=== PATIENT | female | born 1945 | race Caucasian/White ===

== ENCOUNTER → 2018-06-14 | Day surgery (SDC) | payer MEDICARE, OTHER ==
[~2018-06-14] MED LIST: Lactated Ringers 1,000 ML IV SCH; Propofol 200 MG/20 ML SDV IV ONE
--- NOTE | 2018-06-14 12:52 | PCM.HPR ---
H & P Addendum review - H & P Addendum Review Date of Original H & P: 06/12/18 Date Reviewed: 06/14/18 Time Reviewed: 11:45 Patient was Examined: No Changes
--- NOTE | 2018-06-14 12:59 | PCM.OPNOTE ---
- General Post-Op/Procedure Note Date of Surgery/Procedure: 06/14/18 Operative Procedure(s): Colonoscopy with multiple bx's Findings: sig colitis/proctitis Pre Op Diagnosis: Hematochezia Post-Op Diagnosis: Same Anesthesia Technique: MAC Primary Surgeon: René Garcia Pathology: Colon Bx's EBL in mLs: 1 Complications: None Condition: Good
--- NOTE | 2018-06-15 08:01 | OR ---
DATE OF OPERATION: 06/14/2018 SURGEON: René Garcia MD PREOPERATIVE DIAGNOSES: 1. Hematochezia. 2. Family history of colon cancer. POSTOPERATIVE DIAGNOSIS: Colitis of the sigmoid colon and rectum. PROCEDURE: Colonoscopy with multiple biopsies. ANESTHESIA: IV sedation. PROCEDURE IN DETAIL: Patient was brought to the procedure room, where she was placed on her left side and IV sedation administered. Digital rectal exam was performed, which was normal. The colonoscope was inserted and advanced to the level of the cecum with some difficulty getting through a tortuous colon with looping. By providing pressure and changing her to the supine position, I was able to reach the cecum, which was confirmed by identifying the ileocecal valve. Appendiceal lumen was not visible. Appendix has been removed. Prep was good with some areas of stool remaining that were mostly suctioned and irrigated. Photographs were taken in all segments of the colon. I also biopsied all segments of the colon upon withdrawing the scope, including the cecum, ascending colon, transverse colon, descending colon, sigmoid colon, and rectum. The colitis is moderately severe in the rectum and mild in the distal sigmoid colon. This starts at about 20 cm from the anal verge and extends to the anal canal. The worst area is just above the dentate line, where there was an ulcerated area of approximately 1 cm in diameter with heaped up mucosal edges. Photographs of this were also taken. Minimal oozing occurred from the procedure. The patient tolerated the procedure well and returned to recovery in stable condition. PLAN: I will begin her on prednisone and follow up with her next week for followup and review of pathology report. /[id number] ARJUN/MITZI
== END | disposition home or self-care (01) ==
LOC: FB.SDS 09:34
PROVIDERS: ATTEND Surgery
DX: K92.1 Melena (principal); K52.9 Noninfective gastroenteritis and colitis, unspecified; K62.89 Other specified diseases of anus and rectum; E11.9 Type 2 diabetes mellitus without complications; E78.5 Hyperlipidemia, unspecified; I10 Essential (primary) hypertension; Z80.0 Family history of malignant neoplasm of digestive organs; Z79.82 Long term (current) use of aspirin; Z79.899 Other long term (current) drug therapy; Z88.5 Allergy status to narcotic agent; Z91.048 Other nonmedicinal substance allergy status; Z87.891 Personal history of nicotine dependence
CPT/HCPCS: 00812-QZ; 88305; J2704; J7120

== ENCOUNTER 2018-11-15 09:28 | Inpatient (IN) | payer MEDICARE, OTHER ==
[2018-11-15] MEDS ORDERED: Acetaminophen 325 MG Tab PO PRN (13:15)
--- NOTE | 2018-11-15 13:42 | PCM.HP ---
H&P History of Present Illness - General Date of Service: 11/15/18 Admit Problem/Dx: Admission Diagnosis/Problem Admission Diagnosis/Problem Debility Source of Information: Old Records, Provider, Other (Patient was supposed to arrive before I left for the day but because of the weather they were unable to arrive. Dr. Lundy will see the patient and complete the history and px. All information here is from chart review.) History Limitations: Reports: No Limitations - History of Present Illness Initial Comments - Free Text/Narative: Patient is a 73-year-old female with a history of Crohn's disease which was rapidly progressive and ultimately resulted in her being transferred to [place] for intervention. Patient was diagnosed with Crohn's in 2015 but was not treated due to mild symptoms. She presented in May 2018 with severe proctitis and was briefly on immunosuppressive therapy. 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 She was started on Remicade and received 2 doses and follow up with [place] was arranged. In September 2018 she was found have microperforation of the colon and underwent ileostomy on 09/05/18. She then had slow and progressive weight loss and functional decline throughout September and October. She continued to have crampy abdominal pain with bloody output from her fistula 6-10 episodes per day. On October 09, 2018 she was seen for GI follow-up and then admitted at [facility] from 10/09-10/25 due to diffuse proctocolitis, bloody ostomy output , and continued stool passage through rectovaginal fistula. She was transferred to [facility] in [place] on 10/25/17 for further evaluation and management. An MRI on 10/26 showed a 3.4 cm left pelvic fluid collection involving the iliopsoas consistent with a multiloculated pelvic abscess. This was causing left distal ureteral obstruction and hydroureteronephrosis. She also had thickening of the sigmoid colon with new pancolitis and findings consistent with pneumatosis versus wall thickening in the sigmoid colon. Rectovaginal fistula was also identified. She was sent for CT-guided drain placement for the abscess but given the loculated nature there was no part amenable to a pigtail drain. On 11/02/2018 she underwent a total proctocolectomy and exploration of the abdomen with lysis of adhesions, flap omentum, and a cystourethroscopy with placement of ureteral stents bilaterally. The left fallopian tube was also removed. She did remarkably well after surgery and gradually improved. TPN was able to be discontinued. Antibiotics were completed prior to discharge. She will not be taking any steroids or Crohn's medications for 6 weeks while her wounds heal. She had some concerns regarding dysphagia with a negative swallowing evaluation. Hemoglobin was stable in the 7-7.9 range postoperatively. The patient was on sliding scale insulin during her hospital stay and used very little insulin. At the time of discharge she was medically stable and ready for outpatient physical therapy and occupational therapy to address her malnutrition, debility, and weakness. She was discharged from [place] on 11/15/18 for swingbed status here at [facility]. Due to poor weather in the [facility], their arrival was delayed until after hours so Dr. Lundy will see the patient and do the admission history and physical exam on 11/16/18. Past Medical Hx: #1 Crohn's disease as noted above #2 diabetes mellitus type 2 - minimal insulin needs while hospitalized. 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 She has a brother with diabetes who was on dialysis. He also had rectal cancer. Dad had heart disease. Mom had diabetes. She has a sister with colon cancer. Another sister in her 70s of stomach cancer. Third sister in her 90s of old age. Social History: She is and lives with her . Quit smoking in 1989. No alcohol use. - Related Data Allergies/Adverse Reactions: Allergies Allergy/AdvReac Type Severity Reaction Status Date / Time hydrocodone Allergy Edema Verified 06/13/18 15:04 mold Allergy Cannot Verified 06/13/18 15:04 Remember PHENYLENE Allergy Other Uncoded 06/14/18 11:40 Home Medications: Home Meds traMADol [Ultram] 50 mg PO Q6H PRN 06/13/18 [History] Acetaminophen 650 mg PO Q6H PRN 11/15/18 [History] Benzocaine/Menthol [Cepacol Sore Throat Lozenge] 1 dandre PO Q1H PRN 11/15/18 [ History] Enoxaparin Sodium [Lovenox] 40 mg SUBCUT DAILY 11/15/18 [History] Famotidine [Pepcid] 20 mg PO DAILY@0600 11/15/18 [History] Ferrous Sulfate 325 mg PO DAILY 11/15/18 [History] HYDROmorphone [Dilaudid] 2 mg PO Q4H PRN 11/15/18 [History] HYDROmorphone [Dilaudid] 4 mg PO Q4H PRN 11/15/18 [History] Insulin Glarg,Human.Rec.Analog [Lantus Solostar] 30 units SUBCUT DAILY 11/15/18 [History] Lidocaine 5% [Lidoderm 5%] 700 mg TOP DAILY 11/15/18 [History] Magnesium Chloride [Mag-64] 128 mg PO BIDMEALS 11/15/18 [History] Melatonin/Pyridoxine HCl (B6) [Melatonin 3 mg Tablet] 6 mg PO BEDTIME 11/15/18 [ History] Metoprolol Tartrate 25 mg PO BID 11/15/18 [History] Mirtazapine 15 mg PO BEDTIME 11/15/18 [History] Multivit,Calc,Mins/Iron/Folic [Therapeutic-M Tablet] 1 tab PO DAILY 11/15/18 [ History] Multivit-Minerals/Ferrous Gluc [Multi-Naveen Liquid] 15 ml PO SUTUTHSA 11/15/18 [ History] Saccharomyces Boulardii [Florastor] 250 mg PO BID 11/15/18 [History] atorvaSTATin [Lipitor] 5 mg PO BEDTIME 11/15/18 [History] Past Medical History HEENT History: Cardiovascular History: Reports: High Cholesterol, Hypertension Gastrointestinal History: Reports: Diverticulosis Other Gastrointestinal History: COLONOSCOPIES 2008,2016, FLEX SCOPE 2013 Musculoskeletal History: Reports: Arthritis Endocrine/Metabolic History: Reports: Diabetes, Type II - Past Surgical History HEENT Surgical History: Reports: Adenoidectomy, Tonsillectomy GI Surgical History: Reports: Colonoscopy, EGD Female Surgical History: Reports: Hysterectomy Social & Family History - Caffeine Use Caffeine Use: Reports: Coffee H&P Review of Systems - Review of Systems: Review Of Systems: Unable To Obtain (patient didn't arrive as scheduled.) Exam - Exam Exam: Not Obtained - Problem List (1) Debility SNOMED Code(s): 97555163 ICD Code: R53.81 - OTHER MALAISE Status: Acute Problem Details: Secondary to extensive surgery, prolonged hospitalization. PT/OT to evaluate and treat. (2) Crohns disease SNOMED Code(s): 81584732 ICD Code: K50.90 - CROHN'S DISEASE, UNSPECIFIED, WITHOUT COMPLICATIONS Status: Acute Problem Details: Status post surgery with ileostomy and repair of rectovaginal fistula. See above. Patient should be treated with Lovenox for 30 days postoperatively. Surgery was on 11/02/18. She should be off steroids and immunotherapy for 6 weeks to allow healing. She has sutures in place in the perineum which can be removed anytime after 3 weeks of healing by primary care. (3) DM2 (diabetes mellitus, type 2) SNOMED Code(s): 62155771 ICD Code: E11.9 - TYPE 2 DIABETES MELLITUS WITHOUT COMPLICATIONS Status: Acute Problem Details: Minimal insulin requirements while hospitalized at [place]. Will not start insulin at this time. Patient may be able to be started on Januvia. Dr. Lundy will assess tomorrow. (4) HTN (hypertension) SNOMED Code(s): 44833638 ICD Code: I10 - ESSENTIAL (PRIMARY) HYPERTENSION Status: Acute Problem Details: Will assess on patient admission. (5) Hyperlipidemia SNOMED Code(s): 16018849 ICD Code: E78.5 - HYPERLIPIDEMIA, UNSPECIFIED Status: Acute Problem Details: We'll assess on admission. (6) DVT prophylaxis SNOMED Code(s): 517616097, 803147610 ICD Code: [id number] - Status: Acute Problem Details: Lovenox as above. SCDs, BRIAN, increased mobility. Problem List Initiated/Reviewed/Updated: Yes Orders Last 24hrs: Active Orders 24 hr Category Date Time Status Patient Status [ADT] Routine ADT 11/15/18 13:26 Ordered Dietary Supplements [RC] QIDACANDBED Care 11/15/18 13:26 Ordered Height and Weight [RC] DAILY Care 11/15/18 13:26 Ordered Oxygen Therapy [RC] PRN Care 11/15/18 13:26 Ordered Up With Assistance [RC] ASDIRECTED Care 11/15/18 13:26 Ordered VTE/DVT Education [RC] Per Unit Routine Care 11/15/18 13:26 Ordered Vital Signs [RC] PER UNIT ROUTINE Care 11/15/18 13:26 Ordered OT Evaluation and Treatment [CONS] Routine Cons 11/15/18 13:26 Ordered PT Evaluation and Treatment [CONS] Routine Cons 11/15/18 13:26 Ordered Regular Diet [DIET] Diet 11/15/18 Breakfast Ordered Acetaminophen [Tylenol] Med 11/15/18 13:15 Ordered 650 mg PO Q6H PRN Benzocaine/Menthol [Cepacol Sore Throat Lozenge] Med 11/15/18 13:15 Ordered 1 dandre PO Q1H PRN Enoxaparin [Lovenox] Med 11/16/18 09:00 Ordered 40 mg SUBCUT DAILY Famotidine [Pepcid] Med 11/16/18 06:00 Ordered 20 mg PO DAILY@0600 Ferrous Sulfate Med 11/16/18 09:00 Ordered 325 mg PO DAILY HYDROmorphone [Dilaudid] Med 11/15/18 13:15 Ordered 4 mg PO Q4H PRN Magnesium Chloride [Mag-64] Med 11/15/18 18:00 Ordered 128 mg PO BIDMEALS Melatonin/Pyridoxine HCl (B6) [Melatonin 3 mg Tablet] Med 11/15/18 21:00 Ordered 6 mg PO BEDTIME Metoprolol Tartrate [Lopressor] Med 11/15/18 21:00 Ordered 25 mg PO BID Mirtazapine [Remeron] Med 11/15/18 21:00 Ordered 15 mg PO BEDTIME Multivit,Calc,Mins/Iron/Folic [Therapeutic-M Tablet] Med 11/16/18 09:00 Ordered 1 tab PO DAILY Saccharomyces Boulardii [Florastor] Med 11/15/18 21:00 Ordered 250 mg PO BID atorvaSTATin [Lipitor] Med 11/15/18 21:00 Ordered 5 mg PO BEDTIME traMADol [Ultram] Med 11/15/18 13:15 Ordered 50 mg PO Q6H PRN Antiembolic Hose [OM.PC] Per Unit Routine Oth 11/15/18 13:27 Ordered Sequential Compression Device [OM.PC] Per Unit Routine Oth 11/15/18 13:27 Ordered Medication Orders Acetaminophen (Tylenol) 650 mg PO Q6H PRN PRN Reason: Pain Atorvastatin Calcium (Lipitor) 5 mg PO BEDTIME [facility] Enoxaparin Sodium (Lovenox) 40 mg SUBCUT DAILY [facility] Famotidine (Pepcid) 20 mg PO DAILY@0600 [facility] Ferrous Sulfate (Ferrous Sulfate) 325 mg PO DAILY [facility] Hydromorphone HCl (Dilaudid) 4 mg PO Q4H PRN PRN Reason: PAIN 7-07/11 Magnesium Chloride (Mag-64) 128 mg PO BIDMEALS [facility] Metoprolol Tartrate (Lopressor) 25 mg PO BID [facility] Mirtazapine (Remeron) 15 mg PO BEDTIME [facility] Non-Formulary Medication (Benzocaine/Menthol [Cepacol Sore Throat Lozenge]) 1 dandre PO Q1H PRN PRN Reason: Sore Throat Non-Formulary Medication (Melatonin/Pyridoxine Hcl (B6) [Melatonin 3 Mg Tablet] ) 6 mg PO BEDTIME [facility] Non-Formulary Medication (Multivit,Calc,Mins/Iron/Folic [Therapeutic-M Tablet]) 1 tab PO DAILY [facility] Saccharomyces Boulardii (Florastor) 250 mg PO BID [facility] Tramadol HCl (Ultram) 50 mg PO Q6H PRN PRN Reason: Pain
[2018-11-15] MEDS ORDERED: Benzocaine/Cetylpyridinium/Menthol Lozenge MUCMEM PRN (14:15)
[2018-11-15] MEDS: Magnesium Chloride 64 MG Tab.ER PO SCH (19:18)
[2018-11-15] MEDS: traMADol 50 MG Tab PO PRN (20:11)
[2018-11-15] MEDS: HYDROmorphone 2 MG Tab PO PRN (20:15)
[2018-11-15] MEDS: Metoprolol Tartrate 25 MG Tab PO SCH (21:30)
[2018-11-15] MEDS: Saccharomyces Boulardii (Probiotic) 250 MG Cap PO SCH (21:30)
[2018-11-15] MEDS: atorvaSTATin 10 MG Tab PO SCH (21:30)
[2018-11-15] MEDS: Melatonin 3 MG Tab PO SCH (21:31)
[2018-11-15] MEDS: Mirtazapine 15 MG Tab PO SCH (21:32)
[2018-11-16] MEDS: Famotidine 20 MG Tab PO SCH (05:19)
[2018-11-16] MEDS: Magnesium Chloride 64 MG Tab.ER PO SCH ×2 (08:51→19:00)
[2018-11-16] MEDS: Ferrous Sulfate 325 MG Tab PO SCH (08:51)
[2018-11-16] MEDS: Saccharomyces Boulardii (Probiotic) 250 MG Cap PO SCH ×2 (08:51→20:38)
[2018-11-16] MEDS: Lidocaine 5% 700 MG Patch TRDERM SCH (08:52)
[2018-11-16] MEDS: Multivitamins,Therapeutic Tab PO SCH (08:53)
[2018-11-16] MEDS: Metoprolol Tartrate 25 MG Tab PO SCH ×2 (08:53→20:38)
[2018-11-16] MEDS: Enoxaparin 40 MG/0.4 ML Syringe SUBCUT SCH (08:54)
[2018-11-16] MEDS: traMADol 50 MG Tab PO PRN (09:24)
--- NOTE | 2018-11-16 10:34 | PCM.HP ---
H&P History of Present Illness - General Date of Service: 11/16/18 Admit Problem/Dx: Admission Diagnosis/Problem Admission Diagnosis/Problem Debility - History of Present Illness Initial Comments - Free Text/Narative: is a 73-year-old female admitted from the [facility] yesterday to swing bed. She has a history of Crohn's disease of the large intestine with a fistula , and needed extensive surgical intervention at the [facility]. Please see Dr. Day 's note(11/15/18) for the full course and summary. I also personally reviewed the discharge summary from the clinic which is a hard copy.This morning she has no major complaints except intermittent abdominal pain in the upper area that comes and goes she also feels weak as no nausea vomiting no blood in the ileostomy bag no fever - Related Data Allergies/Adverse Reactions: Allergies Allergy/AdvReac Type Severity Reaction Status Date / Time hydrocodone Allergy Edema Verified 06/13/18 15:04 mold Allergy Cannot Verified 06/13/18 15:04 Remember PHENYLENE Allergy Other Uncoded 06/14/18 11:40 Home Medications: Home Meds traMADol [Ultram] 50 mg PO Q6H PRN 06/13/18 [History] Acetaminophen 650 mg PO Q6H PRN 11/15/18 [History] Benzocaine/Menthol [Cepacol Sore Throat Lozenge] 1 dandre PO Q1H PRN 11/15/18 [ History] Enoxaparin Sodium [Lovenox] 40 mg SUBCUT DAILY 11/15/18 [History] Famotidine [Pepcid] 20 mg PO DAILY@0600 11/15/18 [History] Ferrous Sulfate 325 mg PO DAILY 11/15/18 [History] HYDROmorphone [Dilaudid] 2 mg PO Q4H PRN 11/15/18 [History] HYDROmorphone [Dilaudid] 4 mg PO Q4H PRN 11/15/18 [History] Insulin Glarg,Human.Rec.Analog [Lantus Solostar] 30 units SUBCUT DAILY 11/15/18 [History] Lidocaine 5% [Lidoderm 5%] 700 mg TOP DAILY 11/15/18 [History] Magnesium Chloride [Mag-64] 128 mg PO BIDMEALS 11/15/18 [History] Melatonin/Pyridoxine HCl (B6) [Melatonin 3 mg Tablet] 6 mg PO BEDTIME 11/15/18 [ History] Metoprolol Tartrate 25 mg PO BID 11/15/18 [History] Mirtazapine 15 mg PO BEDTIME 11/15/18 [History] Multivit,Calc,Mins/Iron/Folic [Therapeutic-M Tablet] 1 tab PO DAILY 11/15/18 [ History] Multivit-Minerals/Ferrous Gluc [Multi-Naveen Liquid] 15 ml PO SUTUTHSA 11/15/18 [ History] Saccharomyces Boulardii [Florastor] 250 mg PO BID 11/15/18 [History] atorvaSTATin [Lipitor] 5 mg PO BEDTIME 11/15/18 [History] Past Medical History HEENT History: Cardiovascular History: Reports: High Cholesterol, Hypertension Gastrointestinal History: Reports: Diverticulosis Other Gastrointestinal History: COLONOSCOPIES 2007,2015, FLEX SCOPE 2012 Musculoskeletal History: Reports: Arthritis Endocrine/Metabolic History: Reports: Diabetes, Type II - Past Surgical History HEENT Surgical History: Reports: Adenoidectomy, Tonsillectomy GI Surgical History: Reports: Colonoscopy, EGD Female Surgical History: Reports: Hysterectomy Social & Family History - Family History Family Medical History: Noncontributory - Tobacco Use Smoking Status *Q: Former Smoker Used Tobacco, but Quit: Yes Month/Year Tobacco Last Used: 180 - Caffeine Use Caffeine Use: Reports: Coffee - Recreational Drug Use Recreational Drug Use: No H&P Review of Systems - Review of Systems: Review Of Systems: ROS reveals no pertinent complaints other than HPI. Exam - Exam Exam: See Below - Vital Signs Vital Signs: Last Vital Signs Temp 98.4 F 11/16/18 02:00 Pulse 96 11/16/18 08:53 Resp 18 11/16/18 02:00 BP 129/75 11/16/18 08:53 Pulse Ox 99 11/16/18 02:00 Weight: 49.186 kg - Exam General: Alert, Oriented, 4 HEENT: PERRLA, Hearing Intact, Mucosa Moist & [place], Nares Patent, Normal Nasal Septum, Posterior Pharynx Clear, Conjunctiva Clear, EOMI, EACs Clear, TMs Clear Neck: Supple, Trachea Midline, 2 Lungs: Clear to Auscultation, Normal Respiratory Effort Cardiovascular: Regular Rate, Regular Rhythm GI/Abdominal Exam: Other (Ileostomy bag noted.Site is clean. Incision is intact, dry) (Female) Exam: Deferred Rectal (Female) Exam: Deferred Back Exam: Normal Inspection, Full Range of Motion, NT Extremities: Normal Inspection, Normal Range of Motion, Non-Tender, No Pedal Edema, Normal Capillary Refill Skin: Warm, Dry, Intact Neurological: Cranial Nerves Intact, Reflexes Equal Bilateral Neuro Extensive - Mental Status: Alert, Oriented x3, Normal Mood/Affect, Normal Cognition Neuro Extensive - Motor, Sensory, Reflexes: CN II-XII Intact, Normal Gait, Normal Reflexes Psychiatric: Alert, Normal Affect, Normal Mood - Patient Data Lab Results Last 24 hrs: Laboratory Results - last 24 hr 11/16/18 11/16/18 Range/Units 06:15 06:15 WBC 8.9 (4.5-12.0) X10-3/uL RBC 2.71 L (3.23-5.20) x10(6)uL Hgb 8.1 L (11.5-15.5) g/dL Hct 24.2 L (30.0-51.3) % MCV 89.2 (80-96) fL MCH 29.9 (27.7-33.6) pg MCHC 33.5 (32.2-35.4) g/dL RDW 17.3 H (11.5-15.5) % Plt Count 798 H (125-369) X10(3)uL MPV 7.4 (7.4-10.4) fL Neut % (Auto) 67.1 (46-82) % Lymph % (Auto) 15.1 (13-37) % [place] % (Auto) 10.0 (4-12) % Eos % (Auto) 6 H (1.0-5.0) % Baso % (Auto) 2 (0-2) % Neut # (Auto) 6.0 (1.6-8.3) # Lymph # (Auto) 1.3 (0.6-5.0) # [place] # (Auto) 0.9 (0.0-1.3) # Eos # (Auto) 0.6 (0.0-0.8) # Baso # (Auto) 0.1 (0.0-0.2) # Sodium 133 L (135-145) mmol/L Potassium 4.2 (3.5-5.3) mmol/L Chloride 100 (100-110) mmol/L Carbon Dioxide 26 (21-32) mmol/L BUN 8 (7-18) mg/dL Creatinine 0.5 L (0.55-1.02) mg/dL Est Cr Clr Drug Dosing 77.81 mL/min Estimated GFR (MDRD) > 60 (>60) BUN/Creatinine Ratio 16.0 (9-20) Glucose 102 (80-116) mg/dL Calcium 8.8 (8.6-10.2) mg/dL Total Bilirubin 0.2 (0.1-1.3) mg/dL AST 18 (5-25) IU/L ALT 31 (12-36) U/L Alkaline Phosphatase 174 H (56-112) IU/L Total Protein 6.7 (6.0-8.0) g/dL Albumin 1.8 L (3.2-4.6) g/dL Globulin 4.9 g/dL Albumin/Globulin Ratio 0.4 Result Diagrams: 11/16/18 06:15 11/16/18 06:15 - Problem List (1) Crohns disease SNOMED Code(s): 16375091 ICD Code: K50.90 - CROHN'S DISEASE, UNSPECIFIED, WITHOUT COMPLICATIONS Status: Acute Current Visit: No Problem Details: Status post surgery with ileostomy and repair of rectovaginal fistula. See above. Patient should be treated with Lovenox for 30 days postoperatively. Surgery was on 11/02/18. She should be off steroids and immunotherapy for 6 weeks to allow healing. She has sutures in place in the perineum which can be removed anytime after 3 weeks of healing by primary care. (2) Malnutrition SNOMED Code(s): 61823593 ICD Code: E46 - UNSPECIFIED PROTEIN-CALORIE MALNUTRITION Status: Acute Current Visit: Yes Qualifiers: Malnutrition type: protein-calorie malnutrition (3) H/O total colectomy SNOMED Code(s): 006030605, 644386219 ICD Code: Z90.49 - ACQUIRED ABSENCE OF OTHER SPECIFIED PARTS OF DIGESTIVE TRACT Status: Acute Current Visit: Yes (4) Ileostomy care SNOMED Code(s): 904081218 ICD Code: Z43.2 - ENCOUNTER FOR ATTENTION TO ILEOSTOMY Status: Acute Current Visit: Yes (5) Ileostomy in place SNOMED Code(s): 469181092 ICD Code: Z93.2 - ILEOSTOMY STATUS Status: Acute Current Visit: Yes (6) Dysphagia SNOMED Code(s): 23716496, 231968447 ICD Code: R13.10 - DYSPHAGIA, UNSPECIFIED Status: Acute Current Visit: Yes Qualifiers: Dysphagia type: unspecified Qualified Code(s): R13.10 - Dysphagia, unspecified (7) Abscess of rectovesical pouch SNOMED Code(s): 259402419 ICD Code: N30.80 - OTHER CYSTITIS WITHOUT HEMATURIA Status: Acute Current Visit: Yes (8) HLD (hyperlipidemia) SNOMED Code(s): 52828449 ICD Code: E78.5 - HYPERLIPIDEMIA, UNSPECIFIED Status: Acute Current Visit : Yes (9) DM2 (diabetes mellitus, type 2) SNOMED Code(s): 41964614 ICD Code: E11.9 - TYPE 2 DIABETES MELLITUS WITHOUT COMPLICATIONS Status: Acute Current Visit: No Problem Details: Minimal insulin requirements while hospitalized at [place].Observe sugars (10) Debility SNOMED Code(s): 26901871 ICD Code: R53.81 - OTHER MALAISE Status: Acute Current Visit: No Problem Details: Secondary to extensive surgery, prolonged hospitalization. PT/ OT to evaluate and treat. (11) HTN (hypertension) SNOMED Code(s): 58392602 ICD Code: I10 - ESSENTIAL (PRIMARY) HYPERTENSION Status: Acute Current Visit: No Problem Details: stable Qualifiers: Hypertension type: essential hypertension Qualified Code(s): I10 - Essential (primary) hypertension (12) Hyperlipidemia SNOMED Code(s): 55031056 ICD Code: E78.5 - HYPERLIPIDEMIA, UNSPECIFIED Status: Acute Current Visit : No Problem Details: Continue current meds Problem List Initiated/Reviewed/Updated: Yes Orders Last 24hrs: Active Orders 24 hr Category Date Time Status Patient Status [ADT] Routine ADT 11/15/18 13:26 Active Communication Order [RC] 08,16,00 Care 11/15/18 15:06 Active Dietary Supplements [RC] QIDACANDBED Care 11/15/18 13:26 Active Height and Weight [RC] 06 Care 11/15/18 13:26 Active Oxygen Therapy [RC] PRN Care 11/15/18 13:26 Active Up With Assistance [RC] ASDIRECTED Care 11/15/18 13:26 Active VTE/DVT Education [RC] DAILY Care 11/15/18 13:26 Active Vital Signs [RC] 08 Care 11/15/18 13:26 Active OT Evaluation and Treatment [CONS] Routine Cons 11/15/18 13:26 Active PT Evaluation and Treatment [CONS] Routine Cons 11/15/18 13:26 Active Acetaminophen [Tylenol] Med 11/15/18 13:15 Active 650 mg PO Q6H PRN Benzocaine/Cetylpyrd/Menthol [Cepacol Sore Throat] Med 11/15/18 14:15 Active 1 lozenge MUCMEM Q1H PRN Enoxaparin [Lovenox] Med 11/16/18 09:00 Active 40 mg SUBCUT DAILY Famotidine [Pepcid] Med 11/16/18 06:00 Active 20 mg PO DAILY@0600 Ferrous Sulfate Med 11/16/18 09:00 Active 325 mg PO DAILY HYDROmorphone [Dilaudid] Med 11/15/18 13:15 Active 4 mg PO Q4H PRN Lidocaine 5% [Lidoderm 5%] Med 11/16/18 09:00 Active 700 mg TRDERM DAILY Magnesium Chloride [Mag-64] Med 11/15/18 18:00 Active 128 mg PO BIDMEALS Melatonin Med 11/15/18 21:00 Active 6 mg PO BEDTIME Metoprolol Tartrate [Lopressor] Med 11/15/18 21:00 Active 25 mg PO BID Mirtazapine [Remeron] Med 11/15/18 21:00 Active 15 mg PO BEDTIME Multivitamins,Therapeutic [Thera] Med 11/16/18 09:00 Active 1 each PO DAILY Remove Patch Med 11/15/18 21:00 Active 1 ea TRDERM BEDTIME Saccharomyces Boulardii [Florastor] Med 11/15/18 21:00 Active 250 mg PO BID atorvaSTATin [Lipitor] Med 11/15/18 21:00 Active 5 mg PO BEDTIME traMADol [Ultram] Med 11/15/18 13:15 Active 50 mg PO Q6H PRN Antiembolic Hose [OM.PC] Per Unit Routine Oth 11/15/18 13:27 Ordered Sequential Compression Device [OM.PC] Per Unit Routine Oth 11/15/18 13:27 Ordered Medication Orders Acetaminophen (Tylenol) 650 mg PO Q6H PRN PRN Reason: Pain Atorvastatin Calcium (Lipitor) 5 mg PO BEDTIME [facility] Last Admin: 11/15/18 21:30 Dose: 5 mg Benzocaine/Menthol (Cepacol Sore Throat) 1 lozenge MUCMEM Q1H PRN PRN Reason: SORE THROAT Enoxaparin Sodium (Lovenox) 40 mg SUBCUT DAILY [facility] Stop: 12/02/18 10:00 Last Admin: 11/16/18 08:54 Dose: 40 mg Famotidine (Pepcid) 20 mg PO DAILY@0600 [facility] Last Admin: 11/16/18 05:19 Dose: 20 mg Ferrous Sulfate (Ferrous Sulfate) 325 mg PO DAILY [facility] Last Admin: 11/16/18 08:51 Dose: 325 mg Hydromorphone HCl (Dilaudid) 4 mg PO Q4H PRN PRN Reason: PAIN 7-1010 Last Admin: 11/15/18 20:15 Dose: 4 mg Lidocaine (Lidoderm 5%) 700 mg TRDERM DAILY [facility] Last Admin: 11/16/18 08:52 Dose: 700 mg Magnesium Chloride (Mag-64) 128 mg PO BIDMEALS [facility] Last Admin: 11/16/18 08:51 Dose: 128 mg Admin: 11/15/18 19:18 Dose: 128 mg Melatonin (Melatonin) 6 mg PO BEDTIME [facility] Last Admin: 11/15/18 21:31 Dose: 6 mg Metoprolol Tartrate (Lopressor) 25 mg PO BID [facility] Last Admin: 11/16/18 08:53 Dose: 25 mg Admin: 11/15/18 21:30 Dose: 25 mg Mirtazapine (Remeron) 15 mg PO BEDTIME [facility] Last Admin: 11/15/18 21:32 Dose: 15 mg Miscellaneous Information (Remove Patch) 1 ea TRDERM BEDTIME [facility] Last Admin: 11/15/18 21:00 Dose: 1 ea Multivitamins (Thera) 1 each PO DAILY [facility] Last Admin: 11/16/18 08:53 Dose: 1 each Saccharomyces Boulardii (Florastor) 250 mg PO BID [facility] Last Admin: 11/16/18 08:51 Dose: 250 mg Admin: 11/15/18 21:30 Dose: 250 mg Tramadol HCl (Ultram) 50 mg PO Q6H PRN PRN Reason: Pain Last Admin: 11/16/18 09:24 Dose: 50 mg Admin: 11/15/18 20:11 Dose: 50 mg Assessment/Plan Comment:: Admit to [facility] for physical and occupational therapy him , strengthening and nutritional consultation.
[2018-11-16] MEDS: HYDROmorphone 2 MG Tab PO PRN ×3 (12:37→20:47)
[2018-11-16] MEDS: Melatonin 3 MG Tab PO SCH (20:38)
[2018-11-16] MEDS: Mirtazapine 15 MG Tab PO SCH (20:38)
[2018-11-16] MEDS: atorvaSTATin 10 MG Tab PO SCH (20:39)
[2018-11-17] MEDS: HYDROmorphone 2 MG Tab PO PRN ×5 (01:00→21:26)
[2018-11-17] MEDS: Famotidine 20 MG Tab PO SCH (05:15)
[2018-11-17] MEDS: Magnesium Chloride 64 MG Tab.ER PO SCH ×2 (08:33→17:28)
[2018-11-17] MEDS: traMADol 50 MG Tab PO PRN ×2 (08:33→20:24)
[2018-11-17] MEDS: Saccharomyces Boulardii (Probiotic) 250 MG Cap PO SCH ×2 (08:34→20:16)
[2018-11-17] MEDS: Ferrous Sulfate 325 MG Tab PO SCH (08:35)
[2018-11-17] MEDS: Metoprolol Tartrate 25 MG Tab PO SCH ×2 (08:35→20:18)
[2018-11-17] MEDS: Multivitamins,Therapeutic Tab PO SCH (08:36)
[2018-11-17] MEDS: Enoxaparin 40 MG/0.4 ML Syringe SUBCUT SCH (08:36)
[2018-11-17] MEDS: Lidocaine 5% 700 MG Patch TRDERM SCH (08:38)
[2018-11-17] MEDS: Melatonin 3 MG Tab PO SCH (20:17)
[2018-11-17] MEDS: atorvaSTATin 10 MG Tab PO SCH (20:18)
[2018-11-17] MEDS: Mirtazapine 15 MG Tab PO SCH (20:18)
[2018-11-18] MEDS: Famotidine 20 MG Tab PO SCH (05:15)
[2018-11-18] MEDS: HYDROmorphone 2 MG Tab PO PRN ×2 (05:45→14:25)
[2018-11-18] MEDS: traMADol 50 MG Tab PO PRN ×2 (09:57→20:26)
[2018-11-18] MEDS: Magnesium Chloride 64 MG Tab.ER PO SCH ×2 (09:58→18:06)
[2018-11-18] MEDS: Ferrous Sulfate 325 MG Tab PO SCH (09:59)
[2018-11-18] MEDS: Saccharomyces Boulardii (Probiotic) 250 MG Cap PO SCH ×2 (09:59→20:24)
[2018-11-18] MEDS: Lidocaine 5% 700 MG Patch TRDERM SCH (10:00)
[2018-11-18] MEDS: Enoxaparin 40 MG/0.4 ML Syringe SUBCUT SCH (10:00)
[2018-11-18] MEDS: Metoprolol Tartrate 25 MG Tab PO SCH ×2 (10:01→20:25)
[2018-11-18] MEDS: Multivitamins,Therapeutic Tab PO SCH (10:02)
[2018-11-18] MEDS: Melatonin 3 MG Tab PO SCH (20:25)
[2018-11-18] MEDS: atorvaSTATin 10 MG Tab PO SCH (20:25)
[2018-11-18] MEDS: Mirtazapine 15 MG Tab PO SCH (20:26)
[2018-11-19] MEDS: HYDROmorphone 2 MG Tab PO PRN (04:52)
[2018-11-19] MEDS: Famotidine 20 MG Tab PO SCH (06:02)
[2018-11-19] MEDS: Magnesium Chloride 64 MG Tab.ER PO SCH ×2 (08:22→17:52)
[2018-11-19] MEDS: Metoprolol Tartrate 25 MG Tab PO SCH (08:23)
[2018-11-19] MEDS: Lidocaine 5% 700 MG Patch TRDERM SCH (08:23)
[2018-11-19] MEDS: Ferrous Sulfate 325 MG Tab PO SCH (08:23)
[2018-11-19] MEDS: Saccharomyces Boulardii (Probiotic) 250 MG Cap PO SCH ×2 (08:23→20:50)
[2018-11-19] MEDS: Enoxaparin 40 MG/0.4 ML Syringe SUBCUT SCH (08:24)
[2018-11-19] MEDS: Multivitamins,Therapeutic Tab PO SCH (08:24)
--- NOTE | 2018-11-19 08:56 | PCM.PN ---
- General Info Date of Service: 11/19/18 Subjective Update: Deanne complains of epigastric pain, that comes after eating. This pain has been persistent since the [facility]. Nothing seems help except some Dilaudid or Tramadol. It is an ache,sometimes sharp. Associated with nausea and feelings of satiety. She also complains of weight loss, despite eating,but her appetite is minimal - Review of Systems HEENT: Reports: No Symptoms Pulmonary: Reports: No Symptoms Cardiovascular: Reports: No Symptoms Gastrointestinal: Reports: Abdominal Pain. Denies: Constipation Genitourinary: Reports: No Symptoms Musculoskeletal: Reports: No Symptoms - Patient Data Vitals - Most Recent: Last Vital Signs Temp 97.9 F 11/18/18 07:30 Pulse 98 11/19/18 08:23 Resp 18 11/18/18 07:30 BP 128/85 11/19/18 08:23 Pulse Ox 98 11/18/18 07:30 Weight - Most Recent: 46.312 kg Med Orders - Current: Current Medications Acetaminophen (Tylenol) 650 mg PO Q6H PRN PRN Reason: Pain Atorvastatin Calcium (Lipitor) 5 mg PO BEDTIME [facility] Last Admin: 11/18/18 20:25 Dose: 5 mg Benzocaine/Menthol (Cepacol Sore Throat) 1 lozenge MUCMEM Q1H PRN PRN Reason: SORE THROAT Dicyclomine HCl (Bentyl) 10 mg PO TIDAC [facility] Enoxaparin Sodium (Lovenox) 40 mg SUBCUT DAILY [facility] Stop: 12/02/18 10:00 Last Admin: 11/19/18 08:24 Dose: 40 mg Famotidine (Pepcid) 20 mg PO DAILY@0600 [facility] Last Admin: 11/19/18 06:02 Dose: 20 mg Ferrous Sulfate (Ferrous Sulfate) 325 mg PO DAILY [facility] Last Admin: 11/19/18 08:23 Dose: 325 mg Lidocaine (Lidoderm 5%) 700 mg TRDERM DAILY [facility] Last Admin: 11/19/18 08:23 Dose: 700 mg Magnesium Chloride (Mag-64) 128 mg PO BIDMEALS [facility] Last Admin: 11/19/18 08:22 Dose: 128 mg Megestrol Acetate (Megace 40 Mg/Ml Susp) 400 mg PO DAILY [facility] Melatonin (Melatonin) 6 mg PO BEDTIME [facility] Last Admin: 11/18/18 20:25 Dose: 6 mg Mirtazapine (Remeron) 15 mg PO BEDTIME [facility] Last Admin: 11/18/18 20:26 Dose: 15 mg Miscellaneous Information (Remove Patch) 1 ea TRDERM BEDTIME [facility] Last Admin: 11/18/18 20:31 Dose: 1 ea Multivitamins (Thera) 1 each PO DAILY [facility] Last Admin: 11/19/18 08:24 Dose: 1 each Pantoprazole Sodium (Protonix) 40 mg PO 0600 [facility] Saccharomyces Boulardii (Florastor) 250 mg PO BID [facility] Last Admin: 11/19/18 08:23 Dose: 250 mg Tramadol HCl (Ultram) 50 mg PO Q6H PRN PRN Reason: Pain Last Admin: 11/18/18 20:26 Dose: 50 mg Discontinued Medications Hydromorphone HCl (Dilaudid) 4 mg PO Q4H PRN PRN Reason: PAIN 7-07/11 Last Admin: 11/19/18 04:52 Dose: 4 mg Metoprolol Tartrate (Lopressor) 25 mg PO BID [facility] Last Admin: 11/19/18 08:23 Dose: 25 mg - Exam General: Alert HEENT: Pupils Equal Lungs: Clear to Auscultation GI/Abdominal Exam: Normal Bowel Sounds Neurological: No New Focal Deficit Psy/Mental Status: Alert - Problem List & Annotations (1) Crohns disease SNOMED Code(s): 65701764 Code(s): K50.90 - CROHN'S DISEASE, UNSPECIFIED, WITHOUT COMPLICATIONS Status: Acute Current Visit: No Qualifiers: Gastrointestinal tract location: small intestine Annotation/Comment:: Status post surgery with ileostomy and repair of rectovaginal fistula. See above. Patient should be treated with Lovenox for 30 days postoperatively. Surgery was on 11/02/18. She should be off steroids and immunotherapy for 6 weeks to allow healing. She has sutures in place in the perineum which can be removed anytime after 3 weeks of healing by primary care. (2) Malnutrition SNOMED Code(s): 79706428 Code(s): E46 - UNSPECIFIED PROTEIN-CALORIE MALNUTRITION Status: Acute Current Visit: Yes Qualifiers: Malnutrition type: protein-calorie malnutrition (3) H/O total colectomy SNOMED Code(s): 670866158, 463035729 Code(s): Z90.49 - ACQUIRED ABSENCE OF OTHER SPECIFIED PARTS OF DIGESTIVE TRACT Status: Acute Current Visit: Yes (4) Ileostomy care SNOMED Code(s): 404658833 Code(s): Z43.2 - ENCOUNTER FOR ATTENTION TO ILEOSTOMY Status: Acute Current Visit: Yes (5) Ileostomy in place SNOMED Code(s): 760924818 Code(s): Z93.2 - ILEOSTOMY STATUS Status: Acute Current Visit: Yes (6) Dysphagia SNOMED Code(s): 38165928, 763268141 Code(s): R13.10 - DYSPHAGIA, UNSPECIFIED Status: Acute Current Visit: Yes Qualifiers: Dysphagia type: unspecified Qualified Code(s): R13.10 - Dysphagia, unspecified (7) Abscess of rectovesical pouch SNOMED Code(s): 875192562 Code(s): N30.80 - OTHER CYSTITIS WITHOUT HEMATURIA Status: Acute Current Visit: Yes (8) HLD (hyperlipidemia) SNOMED Code(s): 83381515 Code(s): E78.5 - HYPERLIPIDEMIA, UNSPECIFIED Status: Acute Current Visit : Yes (9) DM2 (diabetes mellitus, type 2) SNOMED Code(s): 54920182 Code(s): E11.9 - TYPE 2 DIABETES MELLITUS WITHOUT COMPLICATIONS Status: Acute Current Visit: No Annotation/Comment:: Minimal insulin requirements while hospitalized at [place].Observe sugars (10) Debility SNOMED Code(s): 32517376 Code(s): R53.81 - OTHER MALAISE Status: Acute Current Visit: No Annotation/Comment:: Secondary to extensive surgery, prolonged hospitalization. PT/OT to evaluate and treat. (11) HTN (hypertension) SNOMED Code(s): 33056272 Code(s): I10 - ESSENTIAL (PRIMARY) HYPERTENSION Status: Acute Current Visit: No Qualifiers: Hypertension type: essential hypertension Qualified Code(s): I10 - Essential (primary) hypertension Annotation/Comment:: stable (12) Hyperlipidemia SNOMED Code(s): 60332194 Code(s): E78.5 - HYPERLIPIDEMIA, UNSPECIFIED Status: Acute Current Visit : No Annotation/Comment:: Continue current meds (13) Cachexia SNOMED Code(s): 318699875 Code(s): R64 - CACHEXIA Status: Acute Current Visit: Yes (14) Functional dyspepsia Status: Acute Current Visit: Yes (15) Abnormal weight loss SNOMED Code(s): 612840367 Code(s): R63.4 - ABNORMAL WEIGHT LOSS Status: Acute Current Visit: Yes - Problem List Review Problem List Initiated/Reviewed/Updated: Yes - My Orders Last 24 Hours: My Active Orders 11/19/18 08:44 AMYLASE [CHEM] Routine CBC WITH AUTO DIFF [HEME] Routine COMPREHENSIVE METABOLIC PN,CMP [CHEM] Routine 11/19/18 08:47 Consult to Refrigeration System Installer [CONS] Routine 11/19/18 09:00 Megestrol [Megace 40 MG/ML Susp] 400 mg PO DAILY Pantoprazole [ProTONIX] 40 mg PO 0600 11/19/18 11:30 Dicyclomine [Bentyl] 10 mg PO TIDAC - Plan Plan:: She significantly stressed and depressed. Epigastric pain is likely functional dyspepsia however I will start Protonix 40 mg a day, discontinue Dilaudid in favor Bentyl when necessary. I will obtain a CBC CMP and amylase level today. I' ve added Megace for appetite stimulation.
[2018-11-19] MEDS: Pantoprazole 40 MG Tab.CR PO SCH (11:25)
[2018-11-19] MEDS: Dicyclomine 10 MG Cap PO SCH ×2 (11:25→17:51)
[2018-11-19] MEDS: Megestrol Susp 40 MG/ML ML (240 ML Bottle) PO SCH (11:25)
[2018-11-19] MEDS: traMADol 50 MG Tab PO PRN ×2 (12:15→21:30)
[2018-11-19] MEDS: atorvaSTATin 10 MG Tab PO SCH (20:49)
[2018-11-19] MEDS: Melatonin 3 MG Tab PO SCH (20:50)
[2018-11-19] MEDS: Mirtazapine 15 MG Tab PO SCH (20:50)
[2018-11-20] MEDS: Famotidine 20 MG Tab PO SCH (05:26)
[2018-11-20] MEDS: Pantoprazole 40 MG Tab.CR PO SCH (05:26)
[2018-11-20] MEDS: Dicyclomine 10 MG Cap PO SCH ×3 (05:26→17:31)
[2018-11-20] MEDS: Ferrous Sulfate 325 MG Tab PO SCH (08:48)
[2018-11-20] MEDS: Saccharomyces Boulardii (Probiotic) 250 MG Cap PO SCH ×2 (08:48→20:39)
[2018-11-20] MEDS: Magnesium Chloride 64 MG Tab.ER PO SCH ×2 (08:48→17:31)
[2018-11-20] MEDS: Multivitamins,Therapeutic Tab PO SCH (08:49)
[2018-11-20] MEDS: Megestrol Susp 40 MG/ML ML (240 ML Bottle) PO SCH (08:49)
[2018-11-20] MEDS: Enoxaparin 40 MG/0.4 ML Syringe SUBCUT SCH (08:50)
[2018-11-20] MEDS: Lidocaine 5% 700 MG Patch TRDERM SCH (08:50)
[2018-11-20] MEDS: traMADol 50 MG Tab PO PRN ×3 (08:54→21:06)
[2018-11-20] MEDS: atorvaSTATin 10 MG Tab PO SCH (20:41)
[2018-11-20] MEDS: Melatonin 3 MG Tab PO SCH (20:41)
[2018-11-20] MEDS: Mirtazapine 15 MG Tab PO SCH (20:42)
[2018-11-21] MEDS: Dicyclomine 10 MG Cap PO SCH ×3 (06:36→16:45)
[2018-11-21] MEDS: Famotidine 20 MG Tab PO SCH (06:36)
[2018-11-21] MEDS: Pantoprazole 40 MG Tab.CR PO SCH (06:36)
[2018-11-21] MEDS: Magnesium Chloride 64 MG Tab.ER PO SCH ×2 (09:13→17:39)
[2018-11-21] MEDS: Ferrous Sulfate 325 MG Tab PO SCH (09:13)
[2018-11-21] MEDS: Saccharomyces Boulardii (Probiotic) 250 MG Cap PO SCH ×2 (09:13→21:24)
[2018-11-21] MEDS: Lidocaine 5% 700 MG Patch TRDERM SCH (09:13)
[2018-11-21] MEDS: Enoxaparin 40 MG/0.4 ML Syringe SUBCUT SCH (09:14)
[2018-11-21] MEDS: Megestrol Susp 40 MG/ML ML (240 ML Bottle) PO SCH (09:14)
[2018-11-21] MEDS: Multivitamins,Therapeutic Tab PO SCH (09:15)
[2018-11-21] MEDS: traMADol 50 MG Tab PO PRN ×2 (09:41→21:30)
[2018-11-21] MEDS: Melatonin 3 MG Tab PO SCH (21:25)
[2018-11-21] MEDS: Mirtazapine 15 MG Tab PO SCH (21:25)
[2018-11-21] MEDS: atorvaSTATin 10 MG Tab PO SCH (21:25)
[2018-11-22] MEDS: Dicyclomine 10 MG Cap PO SCH ×3 (06:13→18:25)
[2018-11-22] MEDS: Famotidine 20 MG Tab PO SCH (06:14)
[2018-11-22] MEDS: Pantoprazole 40 MG Tab.CR PO SCH (06:14)
[2018-11-22] MEDS: Magnesium Chloride 64 MG Tab.ER PO SCH ×2 (08:04→18:25)
[2018-11-22] MEDS: Lidocaine 5% 700 MG Patch TRDERM SCH (08:04)
[2018-11-22] MEDS: Enoxaparin 40 MG/0.4 ML Syringe SUBCUT SCH (08:04)
[2018-11-22] MEDS: Ferrous Sulfate 325 MG Tab PO SCH (08:04)
[2018-11-22] MEDS: Saccharomyces Boulardii (Probiotic) 250 MG Cap PO SCH ×2 (08:04→20:42)
[2018-11-22] MEDS: Multivitamins,Therapeutic Tab PO SCH (08:05)
[2018-11-22] MEDS: Megestrol Susp 40 MG/ML ML (240 ML Bottle) PO SCH (08:05)
[2018-11-22] MEDS: traMADol 50 MG Tab PO PRN ×2 (11:32→21:44)
[2018-11-22] MEDS: atorvaSTATin 10 MG Tab PO SCH (20:42)
[2018-11-22] MEDS: Mirtazapine 15 MG Tab PO SCH (20:43)
[2018-11-22] MEDS: Melatonin 3 MG Tab PO SCH (20:43)
[2018-11-23] MEDS: Dicyclomine 10 MG Cap PO SCH ×3 (06:16→17:23)
[2018-11-23] MEDS: Pantoprazole 40 MG Tab.CR PO SCH (06:16)
[2018-11-23] MEDS: Famotidine 20 MG Tab PO SCH (06:17)
[2018-11-23] MEDS: Saccharomyces Boulardii (Probiotic) 250 MG Cap PO SCH ×2 (08:02→20:48)
[2018-11-23] MEDS: Ferrous Sulfate 325 MG Tab PO SCH (08:02)
[2018-11-23] MEDS: Lidocaine 5% 700 MG Patch TRDERM SCH (08:02)
[2018-11-23] MEDS: Magnesium Chloride 64 MG Tab.ER PO SCH ×2 (08:02→17:25)
[2018-11-23] MEDS: Enoxaparin 40 MG/0.4 ML Syringe SUBCUT SCH (08:03)
[2018-11-23] MEDS: Megestrol Susp 40 MG/ML ML (240 ML Bottle) PO SCH (08:03)
[2018-11-23] MEDS: Multivitamins,Therapeutic Tab PO SCH (08:03)
[2018-11-23 11:50] LABS: HEMOGLOBIN A1C 5.3 % (4.5-6.2)
[2018-11-23] MEDS: Melatonin 3 MG Tab PO SCH (20:48)
[2018-11-23] MEDS: Mirtazapine 15 MG Tab PO SCH (20:48)
[2018-11-23] MEDS: atorvaSTATin 10 MG Tab PO SCH (20:49)
[2018-11-23] MEDS: traMADol 50 MG Tab PO PRN (20:49)
[2018-11-24] MEDS: Dicyclomine 10 MG Cap PO SCH ×2 (10:17→13:00)
[2018-11-24] MEDS: Famotidine 20 MG Tab PO SCH (10:18)
[2018-11-24] MEDS: Pantoprazole 40 MG Tab.CR PO SCH (10:18)
[2018-11-24] MEDS: Saccharomyces Boulardii (Probiotic) 250 MG Cap PO SCH (10:19)
[2018-11-24] MEDS: Magnesium Chloride 64 MG Tab.ER PO SCH (10:19)
[2018-11-24] MEDS: Ferrous Sulfate 325 MG Tab PO SCH (10:19)
[2018-11-24] MEDS: Lidocaine 5% 700 MG Patch TRDERM SCH (10:20)
[2018-11-24] MEDS: Megestrol Susp 40 MG/ML ML (240 ML Bottle) PO SCH (10:21)
[2018-11-24] MEDS: Enoxaparin 40 MG/0.4 ML Syringe SUBCUT SCH (10:22)
[2018-11-24] MEDS: Multivitamins,Therapeutic Tab PO SCH (10:22)
[2018-11-24] MEDS: traMADol 50 MG Tab PO PRN (10:33)
--- NOTE | 2018-11-25 11:26 | DISCH ---
DISCHARGE DATE: 11/24/2018 DISCHARGE DIAGNOSIS: Postoperative recovery, a total colectomy-ileostomy for complicated Crohn disease. HISTORY OF PRESENT ILLNESS: Deanne Frazier is a 73-year-old female, admitted by Dr. Cathy Banks, followed by Dr. Lundy, and discharged by myself. She had a short-term stay, recovering from major surgery done at [facility]. Please see admitting history and physical. During her stay, no complicating issue. Has brief episodes of a postprandial vague epigastric pain. Not disabling, minimally problematic. Analgesics provided some benefit. Achiness, not sharp, mild nausea. Was given supplements, Megace, analgesics. Throughout her hospital stay, no issues. Wound was healing well, sutures removed from the abdomen and rectum without difficulty. The ileostomy worked well throughout her hospital stay. All things considered, she does have a gallbladder, appendix is gone. Ultrasound done on the day of discharge revealed no major pathology. She has a tiny renal cyst, an intrarenal-intracalyceal kidney stone. Neither of issue. Does have a history of thrush, esophagitis, and gastritis. By her report, not feeling the same as that episode in the past. Spoke the opportunities for a nonfunctioning gallbladder and upper endoscopy. Taken under consideration. LABORATORY STUDIES: Hemoglobin 8.1, 10.3, and 9.2; 11/16, 11/19, and 11/23 respectively. White count 8900, 8100, and 8400. Platelet count elevated at 798, 928, 621. Sodium 133 and 131, kidney function greater than 60. PHYSICAL EXAMINATION: VITAL SIGNS: At the time of discharge, her vital signs were comfortably normal; 48 kg, 36.7, pulse of 94, 125/70, 98%. HEENT: Mouth and oropharynx clear. NECK: Benign. Thyroid small. CHEST: Clear in all lung baker. HEART: No ectopy or murmur. ABDOMEN: Surgical wound healing well. Ostomy functional. No palpable masses. DISPOSITION: The patient discharged, to follow up in 1 week's time with her primary at [facility] and Dr. Garcia, [facility]. Persistent symptoms, upper endoscopy and/or related studies, HIDA, Kinevac for liver under consideration. Discharge, 30 minutes; planning, exam, and discharge planning. /[id number] BEE/MITZI
--- NOTE | 2018-11-26 07:55 | PN ---
DATE SEEN: 11/23/2018 SUBJECTIVE: Deanne Frazier is a 73-year-old, female, seen today for review. Had a colectomy at [place] the first part of November 2018. Swing bed [place] on 11/16/2018 until present. Colectomy and ileostomy in place. Complicated Crohn's disease. Suture removal x5 on the rectum, abdominal pavithra to be re-evaluated. Laboratory studies: Hemoglobin 8.1, 10.3, today 9.2; hematocrit 27.7. Dilaudid with reducing doses, tramadol for pain. Bentyl and Protonix for GI pain. Troublesome upper GI pain, postprandial. Gallbladder in place. PHYSICAL EXAMINATION: CHEST: Clear. HEART: Regular. ABDOMEN: Benign. Surgical wounds intact. Ileostomy functioning. 5 sutures removed from the rectal area. [place] per nursing staff. ASSESSMENT: 1. Atypical epigastric pain, origin indeterminant. 2. Remote colectomy. PLAN: Ultrasound of gallbladder, complementary care and well being, and intervention and care as appropriate. /[id number] /MITZI
--- NOTE | 2018-11-26 07:57 | PN ---
DATE SEEN: 11/23/2018 Deanne Frazier is a 73-year-old, female, presently in swing bed [facility]. She has been here since the , plan for discharge upcoming. She underwent a total colectomy with ileostomy placement at [place], first part of November. Recovery has been satisfactory. She is seen today [id number] for home health referral documentation. Hospital stay was related to again a major surgery, colectomy and ileostomy and intervention for Crohn's disease. Medicare home services timing appropriate, including wound care, disease teaching, and homebound status. Duration up to 1 month's timeframe. /[id number] BEE/MITZI
== END 2018-11-24 15:46 | disposition home or self-care (01) | DRG 948 ==
LOC: FB.MS 17:42
PROVIDERS: ADMIT Family Medicine; ATTEND Family Medicine
DX: R53.81 Other malaise (principal); K50.90 Crohn's disease, unspecified, without complications; E46 Unspecified protein-calorie malnutrition; Z68.1 Body mass index [BMI] 19.9 or less, adult; R64 Cachexia; Z98.890 Other specified postprocedural states; Z90.49 Acquired absence of other specified parts of digestive tract; Z93.2 Ileostomy status; R13.10 Dysphagia, unspecified; I10 Essential (primary) hypertension; E11.9 Type 2 diabetes mellitus without complications; Z79.4 Long term (current) use of insulin; E78.5 Hyperlipidemia, unspecified; Z85.828 Personal history of other malignant neoplasm of skin; Z87.891 Personal history of nicotine dependence; Z90.710 Acquired absence of both cervix and uterus; Z79.01 Long term (current) use of anticoagulants; Z88.5 Allergy status to narcotic agent; Z88.8 Allergy status to other drugs, medicaments and biological substances; Z91.048 Other nonmedicinal substance allergy status; N30.80 Other cystitis without hematuria; R10.13 Epigastric pain
CPT/HCPCS: 36415; 76705; 80048; 80053; 82150; 83036; 85025; 97110-GO; 97110-GP; 97116-GP; 97161-GP; 97165-GO; 97530-GO; 97530-GP; 97535-GO; A9270-GY; J1650